=== PATIENT | male | born 1950 | race Two or more races ===

== ENCOUNTER 2025-01-11 06:49 | Outpatient (CLI) | payer OTHER ==
[~2025-01-11 06:49] MED LIST: LIPITOR20 MG PO; LOSARTAN POTASS25 MG PO; METFORMIN HCL500 M3 PO; PEPCID AC20 MG PO; PROSCAR5 MG PO; PROTONIX40 MG PO; SYNTHROID88 MCG PO; TAMS0.4C PO; XARELTO20 MG PO
[2025-01-11 07:54] LABS: URINE APPEARANCE Clear; URINE BILIRRUBIN Negative (NEGATIVE); URINE BLOOD NHT; URINE COLOR Yellow; URINE GLUCOSE Negative (NEGATIVE); URINE KETONE Negative (NEGATIVE); URINE LEUKOCYTE Negative; URINE NITRATE Negative; URINE PROTEIN Negative (NEGATIVE); URINE UROBILINOGEN 0.2 E.U./dl
[2025-01-11 07:58] LABS: URINE RBC 3.3 uL (0.0-20.8); URINE WBC 2.3 uL (0.0-23.2)
[2025-01-11 08:08] LABS: URINE BACTERIA 2.3 uL (0.0-1933); URINE CAST 0.00 uL (0.0-1.40); URINE EPITHELIAL CELLS 1.3 uL (0.0-38.8)
[2025-01-11] MEDS ORDERED: CLEOCIN HCL300 MG PO (11:28)
== END 2025-01-11 07:12 | disposition home or self-care (01) ==
LOC: LAB 06:49
PROVIDERS: ATTEND Otolaryngology Otology & Neurotology
DX: N39.0 Urinary tract infection, site not specified (principal)

== ENCOUNTER 2025-01-11 07:05 | Day surgery (SDC) | payer OTHER ==
[2025-01-03 13:18] VITALS: BP 160/78
[~2025-01-11] VITALS: Ht 172.7 cm; Wt 77.1 kg
[~2025-01-11 07:05] MED LIST changes: +CLINDAMYCIN PHOSPHATE 150 MG/ML (600mg) IV SCH
[2025-01-11] MEDS ORDERED: CLINDAMYCIN PHOSPHATE 150 MG/ML (600mg) ONE (10:14)
[2025-01-11] MEDS ORDERED: LIDOCAINE HCL 1%/EPINEPHRINE 20ML VIAL IJ ONE (10:14)
[2025-01-11] MEDS ORDERED: CLEOCIN HCL300 MG PO (11:28)
[2025-01-11] MEDS ORDERED: SUGAMMADEX SODIUM 200 MG/2 ML VIAL IV ONE (11:30)
[2025-01-11] MEDS ORDERED: MORPHINE SULFATE 4 MG/ML VIAL IV ONE (12:05)
== END 2025-01-11 14:55 | disposition home or self-care (01) ==
LOC: CIR.AMB 07:05
PROVIDERS: ATTEND Otolaryngology Otology & Neurotology
DX: S02.2XXA Fracture of nasal bones, initial encounter for closed fracture (principal); S03.1XXA Dislocation of septal cartilage of nose, initial encounter; Z88.0 Allergy status to penicillin